=== PATIENT | male | born 2000 | race African-American/Black ===

== ENCOUNTER 2023-06-07 02:19 | Outpatient (CLI) | payer OTHER, SELFPAY | END 2023-06-07 02:20 | disposition home or self-care (01) | LOC: AMB 06-15 15:35 | PROVIDERS: Visit Provider Family Medicine | DX: S49.90XA Unspecified injury of shoulder and upper arm, unspecified arm, initial encounter (principal); S29.9XXA Unspecified injury of thorax, initial encounter; V49.9XXA Car occupant (driver) (passenger) injured in unspecified traffic accident, initial encounter; Y92.9 Unspecified place or not applicable | CPT/HCPCS: A0425; A0429 ==